=== PATIENT | male | born 1950 | race Two or more races ===

== ENCOUNTER → 2020-05-06 | Outpatient (CLI) | payer MEDICARE | END | disposition home or self-care (01) | LOC: LAB SHORT 13:30 → LAB 13:30 | DX: N30.01 Acute cystitis with hematuria (principal) | CPT/HCPCS: 87077; 87086; 87186 ==

== ENCOUNTER 2020-06-05 12:55 | Day surgery (SDC) | payer MEDICARE ==
[~2020-06-05] VITALS: Ht 182.9 cm; Wt 112.6 kg
[~2020-06-05 12:55] MED LIST: AMLODIPINE BESYL5 MG PO; ASPI81CH PO; ATOR20 PO; METO25ER PO; METO50ER PO; ROPI.25 PO; ROPINIROLE HCL1 MG PO; TAMSULOSIN HCL0.4 M1 PO; TRAM50 PO; ZOLP5 PO
--- NOTE | 2020-06-05 17:25 | NUR ---
06/05/20 1725 Rebeca Parry PT IS VERY PAINFUL AND HAS BEEN MEDICATED PER ORDERES SEE VS RECORD. PT IS DRINKING FLUIDS AND TALKING ABOUT ORDERING PIZZA. VS STABLE.
== END 2020-06-05 17:52 | disposition home or self-care (01) ==
LOC: ORSCSDS 12:55
PROVIDERS: Podiatrist Foot & Ankle Surgery
PROC: 0MQQ0ZZ Repair Right Ankle Bursa and Ligament, Open Approach (ICD-10-PCS; principal; 2020-06-05 14:45)
PROC: 0QSJ04Z Reposition Right Fibula with Internal Fixation Device, Open Approach (ICD-10-PCS; principal; 2020-06-05 14:45)
DX: S82.61XA Displaced fracture of lateral malleolus of right fibula, initial encounter for closed fracture (principal); S93.421A Sprain of deltoid ligament of right ankle, initial encounter; I10 Essential (primary) hypertension; Z79.82 Long term (current) use of aspirin; Z79.899 Other long term (current) drug therapy; Z85.72 Personal history of non-Hodgkin lymphomas; I48.91 Unspecified atrial fibrillation; Z79.01 Long term (current) use of anticoagulants; Z86.718 Personal history of other venous thrombosis and embolism
CPT/HCPCS: C1713; J0171; J0690; J1100; J2250; J2405; J2704; J3010; J7120

== ENCOUNTER → 2022-01-27 | Outpatient (CLI) | payer MEDICARE, OTHER | END | disposition home or self-care (01) | LOC: PLD 11:02 → LAB SHORT 11:02 → LAB 11:02 | DX: C44.212 Basal cell carcinoma of skin of right ear and external auricular canal (principal); C44.41 Basal cell carcinoma of skin of scalp and neck | CPT/HCPCS: 88305 ==

== ENCOUNTER → 2022-03-22 | Outpatient (CLI) | payer MEDICARE, OTHER | END | disposition home or self-care (01) | LOC: PLD 15:50 → LAB SHORT 15:50 | DX: C44.41 Basal cell carcinoma of skin of scalp and neck (principal) | CPT/HCPCS: 88305 ==

== ENCOUNTER → 2022-04-05 | Outpatient (CLI) | payer MEDICARE, OTHER | END | disposition home or self-care (01) | LOC: LAB SHORT 07:30 → PLD 07:30 | DX: C44.41 Basal cell carcinoma of skin of scalp and neck (principal) | CPT/HCPCS: 88305 ==

== ENCOUNTER → 2022-05-20 | Outpatient (CLI) | payer MEDICARE ==
[2022-05-21 16:09] LABS: Protein, Urine Quantitative 42.6 mg/dL (0.0-11.9)
[2022-05-22 13:30] LABS: Stool Occult Bld Immuno 1 Negative (NEGATIVE)
== END | disposition home or self-care (01) ==
LOC: LAB SHORT 14:32 → LAB 14:32 → LAB SHORT 05-21 14:32
PROVIDERS: Internal Medicine Nephrology
DX: N18.30 Chronic kidney disease, stage 3 unspecified (principal); D63.1 Anemia in chronic kidney disease; R73.09 Other abnormal glucose; N25.81 Secondary hyperparathyroidism of renal origin; E55.9 Vitamin D deficiency, unspecified; E78.00 Pure hypercholesterolemia, unspecified; R76.9 Abnormal immunological finding in serum, unspecified; R94.5 Abnormal results of liver function studies; R94.6 Abnormal results of thyroid function studies; G60.9 Hereditary and idiopathic neuropathy, unspecified
CPT/HCPCS: 81050; 82570; 84156; 84300; 86335; G0328

== ENCOUNTER → 2022-05-27 | Outpatient (CLI) | payer MEDICARE | END | disposition home or self-care (01) | LOC: LAB 17:52 → LAB SHORT 17:52 | DX: N39.0 Urinary tract infection, site not specified (principal) | CPT/HCPCS: 87077; 87086; 87186 ==